=== PATIENT | female | born 1985 | race Caucasian/White ===

== ENCOUNTER 2020-05-06 14:17 | Emergency (ER) | payer OTHER ==
--- NOTE | 2020-05-06 14:53 | RAD ---
RADIOGRAPH CHEST 1 VIEW: 05/06/20 HISTORY: 34-year-old COVID-19 positive female with worsening chest pain. FINDINGS: The visualized lung woodson are clear. The cardiomediastinal silhouette and hilar shadows are normal. The lateral costophrenic angles are sharp. The osseous structures appear normal. There is no pneu mothorax. IMPRESSION: Negative. jn [] POS: [facility]
== END 2020-05-06 15:32 | disposition home or self-care (01) ==
LOC: ERS 14:17
DX: U07.1 COVID-19 (principal); F41.9 Anxiety disorder, unspecified
CPT/HCPCS: 71045

== ENCOUNTER 2023-01-13 09:49 | Outpatient (CLI) | payer BC | END 2023-01-13 09:50 | disposition home or self-care (01) | LOC: BICMAMMO 09:49 | PROVIDERS: ATTEND Obstetrics & Gynecology | DX: R22.32 Localized swelling, mass and lump, left upper limb (principal) | CPT/HCPCS: 77066; G0279 ==